=== PATIENT | female | born 1970 | race Caucasian/White ===

== ENCOUNTER 2022-01-18 11:01 | Observation (INO) ==
[~2022-01-18 11:01] MED LIST: Buffered Lidocaine 1% SYRIN 1 ml INTRADERM ONE; Lactated Ringers 1000 ml BAG 1,000 ML IV SCH
[2022-01-18] MEDS ORDERED: Scopolamine 1 mg/72hr PATCH ONE (11:34)
[2022-01-18] MEDS ORDERED: Ondansetron ODT 4 mg TAB 4 MG TAB ONE (11:35)
[2022-01-18] MEDS ORDERED: ceFAZolin 2 GM PREMIX 2 GM/50 ML BAG ONE (11:35)
[2022-01-18] MEDS ORDERED: Lidocaine 2% PF 5 ML VIAL ONE (12:07)
[2022-01-18] MEDS ORDERED: Rocuronium 50 mg VIAL 10 mg/ml 5 ml VIAL (50 mg) ONE ×3 (12:07→15:10)
[2022-01-18] MEDS ORDERED: Propofol 10 MG/ML 20 ML BTL ONE (12:07)
[2022-01-18] MEDS ORDERED: fentaNYL 100 mcg/2 ml 50 MCG/ML VIAL ONE (12:07)
[2022-01-18] MEDS ORDERED: Midazolam 2 mg/2 ml VIAL 1 mg/ml 2 ml VIAL (2 mg) ONE (12:07)
[2022-01-18] MEDS ORDERED: oxyCODONE/Acetamin 5/325 mg TAB PO PRN (12:18)
[2022-01-18] MEDS ORDERED: Naloxone 0.4 mg VIAL 0.4 mg/ml 1 ml VIAL IV PRN (12:18)
[2022-01-18] MEDS ORDERED: Heparin 5000 UNITS/ML 1 mL VIAL ONE (12:19)
[2022-01-18] MEDS ORDERED: Chlorhexidine MOUTHWASH 0.12% 15 ML UDC ONE (12:19)
[2022-01-18] MEDS ORDERED: Bupivacaine 0.5% SDV PF 30ML VIAL ONE (12:19)
[2022-01-18] MEDS ORDERED: Lidocaine 1% MPF 5 ML VIAL ONE (12:20)
[2022-01-18] MEDS ORDERED: Lidocaine 2% w/ EPI 1:200,000 MPF 20 ML SDV VIAL ONE (12:33)
[2022-01-18] MEDS ORDERED: Scopolamine 1 mg/72hr PATCH TRANSDERM SCH (13:00)
[2022-01-18] MEDS ORDERED: fentaNYL 250 mcg/5 ml 50 MCG/ML 5 ml VIAL (250 MCG) ONE (13:33)
[2022-01-18] MEDS ORDERED: Dexamethasone IV 4 MG/ML VIAL 1 ml VIAL ONE (14:10)
[2022-01-18] MEDS ORDERED: Ondansetron 4 mg VIAL 2 MG/ML 2 ml VIAL ONE (14:10)
[2022-01-18] MEDS ORDERED: Acetaminophen IV 1 GM/100ML 1,000 MG/100 ML BAG IV ONE (14:10)
[2022-01-18] MEDS ORDERED: Esmolol 10 MG/ML 10 ML (100 mg) ONE (15:28)
[2022-01-18] MEDS ORDERED: HYDROmorphone 0.5 MG/0.5 ML SYRINGE ONE (16:31)
[2022-01-18] MEDS ORDERED: ceFAZolin 1 GM in Dextrose 2 GM/100 ML BAG ONE (16:49)
[2022-01-18] MEDS ORDERED: HYDROmorphone 1 MG/1 ML SYRINGE ONE (18:45)
[2022-01-18] MEDS: HYDROmorphone 1 MG/1 ML SYRINGE IV PRN ×5 (18:46→21:13)
[2022-01-18] MEDS ORDERED: Heparin 5000 UNITS/ML 1 mL VIAL SUBCUT PRN (20:46)
[2022-01-18] MEDS ORDERED: oxyCODONE/Acetamin 5/325 mg TAB ONE (21:57)
[2022-01-19] MEDS: oxyCODONE/Acetamin 5/325 mg TAB PO PRN ×2 (02:42→08:32)
[2022-01-19] MEDS ORDERED: Magnesium Hydroxide LIQ 30 ML UDC PO ONE (09:00)
[2022-01-19 11:26] VITALS: BP 115/55
== END 2022-01-19 15:05 | disposition home or self-care (01) ==
LOC: SSU 11:01 → OR 11:01
PROVIDERS: ADMIT Obstetrics & Gynecology; ATTEND Obstetrics & Gynecology